=== PATIENT | female | born 1980 | race Caucasian/White ===

== ENCOUNTER 2017-05-29 10:04 | Emergency (ER) | payer SELFPAY ==
[~2017-05-29] VITALS: Ht 170.2 cm; Wt 96.0 kg
[~2017-05-29 10:04] MED LIST: BACT800T5 PO; CEPH500C3 PO
[2017-05-29 10:09] VITALS: BP 138/66; PULSE 97; RESP 18; TEMP 97.8; O2SAT 98
[2017-05-29] MEDS ORDERED: SODIUM CHLORIDE 0.9% FLUSH 10 ML FLUSH IVF PRN (10:15)
[2017-05-29] MEDS ORDERED: HYDROmorphone HCL PF 2 MG/ML VIAL IV PUSH ONE (10:15)
[2017-05-29 10:18] VITALS: RESP 17; O2SAT 98
[2017-05-29 10:56] VITALS: BP 122/85; PULSE 86; RESP 16; TEMP 97.8; O2SAT 98
--- NOTE | 2017-05-29 10:56 | PD ---
Physical Exam Narrative I, Dr. Tate, have reviewed the advance practice practitioner's documentation and am in agreement, met with the patient face to face, made the diagnosis, and the medical decision making was done by me. *My assessment and Findings: Patient is a 37-year-old female comes in complaining of knee pain after she fell off a half report this morning. She also has pain to her right ankle. Exam shows dislocation of the right patella and swelling of the right ankle. Pedal pulses are intact. Data Data Last Documented VS Vital Signs Date Time Temp Pulse Resp B/P (MAP) Pulse Ox O2 Delivery O2 Flow Rate FiO2 05/29/17 12:26 97.8 86 16 120/77 (91) 98 05/29/17 10:56 Room Air Orders Orders Iv Access Insert/Monitor (05/29/17 10:15) Oximetry (05/29/17 10:15) Sodium Chloride 0.9% Flush (Ns Flush) (05/29/17 10:15) Knee, Complete (4vws) (05/29/17 ) Tibia/Fibula (Ap/Lat) (05/29/17 ) Hydromorphone Pf Inj (Dilaudid Pf Inj) (05/29/17 10:15) Splint Or Brace Apply/Monitor (05/29/17 11:18) Crutches (05/29/17 11:18) Ed Discharge Order (05/29/17 12:27) Fiberglass Short Leg Splint Ad (05/29/17 ) Immobilizer Knee 20 Inch (05/29/17 ) MDM Supervised Visit with BILLY: Yes Narrative Course Patient received 8 mg of morphine by EMS. Patella was relocated. She is given additional pain medicine. X-ray shows a fracture of the ankle. She is placed in a knee immobilizer and ankle was splinted. Given crutches. Advised follow- up with orthopedics. Procedures Procedure Narrative Verbal consent was obtained. Right leg straightened and patella was pushed back into place. Patient tolerated the procedure well. Pedal pulses present after the reduction. Diagnosis Primary Impression: Dislocation of right patella Qualified Codes: S83.004A - Unspecified dislocation of right patella, initial encounter Scripts Hydrocodone/Acetaminophen (Hydrocodone-Acetamin 5-325 mg) 5 Mg-325 Mg Tablet 1 TAB PO Q6HR Y for PAIN SCALE 1 TO 10, #15 Prov: Gabby Tate MD 05/29/17 Disposition: 01 DISCHARGE HOME Gabby Tate MD May 29, 2017 10:56
--- NOTE | 2017-05-29 10:59 | PD ---
HPI Chief Complaint: Fall Time Seen by Provider: 10:10 Travel History International Travel<30 days: No Contact w/Intl Traveler<30days: No Traveled to known affect area: No History of Present Illness HPI 37-year-old female presents to the emergency room via ambulance for evaluation of extreme right knee pain. Patient was playing on her daughter's report when she fell forward landing on her right knee. She also reports pain in her ankle. Denies paresthesias. Denies any other injuries. She denies hitting her head or loss of consciousness. States pain is worsened with any range of motion of the knee. She received 8 mg of morphine on the ambulance without any relief in symptoms. PFS Past Medical History Medical History: Denies Significant Hx Diminished Hearing: No Tetanus Vaccination: > 5 Years Influenza Vaccination: No ?: Not LMP: 05/02/17 : 6 Para: 1 Miscarriage: 2 : 2 Ectopic : Yes (2) Past Surgical History Section: Yes (1) Gynecologic Surgery: Yes (left fallopian tube REMOVED) Social History Alcohol Use: Yes (OCASSIONALLY) Tobacco Use: Yes (1/2 PPD) Substance Use: Yes (METH,YEARS AGO) Allergies-Medications (Allergen,Severity, Reaction): Coded Allergies: No Known Allergies (Verified Adverse Reaction, Unknown, 05/29/17) Reported Meds & Prescriptions Reported Meds & Active Scripts Active Hydrocodone-Acetamin 5-325 mg (Hydrocodone/Acetaminophen) 5 Mg-325 Mg Tablet 1 Tab PO Q6HR PRN Review of Systems Except as stated in HPI: all other systems reviewed are Neg Physical Exam Narrative GENERAL: Well-nourished, obese female screaming in pain. Holding right knee flexed. SKIN: Focused skin assessment warm/dry. HEAD: Normocephalic. EYES: No scleral icterus. No injection or drainage. NECK: Supple, trachea midline. No JVD or lymphadenopathy. CARDIOVASCULAR: Regular rate and rhythm without murmurs, gallops, or rubs. RESPIRATORY: Breath sounds equal bilaterally. No accessory muscle use. MUSCULOSKELETAL: No cyanosis. Moderate edema of the right ankle. No obvious edema of the right knee. There is obvious lateral dislocation of the right patella. Patient has extreme pain with any range of motion of the knee. Full range motion of the ankle and foot. 2+ dorsalis pedis pulse. Data Data Last Documented VS Vital Signs Date Time Temp Pulse Resp B/P (MAP) Pulse Ox O2 Delivery O2 Flow Rate FiO2 05/29/17 10:56 97.8 86 16 122/85 (97) 98 Room Air Orders Orders Iv Access Insert/Monitor (05/29/17 10:15) Oximetry (05/29/17 10:15) Sodium Chloride 0.9% Flush (Ns Flush) (05/29/17 10:15) Knee, Complete (4vws) (05/29/17 ) Tibia/Fibula (Ap/Lat) (05/29/17 ) Hydromorphone Pf Inj (Dilaudid Pf Inj) (05/29/17 10:15) Splint Or Brace Apply/Monitor (05/29/17 11:18) Crutches (05/29/17 11:18) MDM Medical Decision Making Medical Screen Exam Complete: Yes Emergency Medical Condition: Yes Medical Record Reviewed: Yes Differential Diagnosis Dislocation, contusion, sprain, strain Narrative Course 37-year-old female presents to the emergency room via ambulance for evaluation of right knee pain after falling off of a hover board just prior to arrival. She also reports right ankle pain but denies any other injuries. She was given 8 mg morphine in the ambulance and 0.5 mg Dilaudid in the ED. Physical exam reveals obvious lateral dislocation of the right patella. Patient's leg is held in flexion. My attending physician, Dr. Tate, came in reduced the right patella without difficulty, see alternate provider note for details. Upon reduction, patient had complete range of motion of the right lower extremity. It remains neurovascularly intact. X-ray of the knee is negative. X -ray of the ankle shows nondisplaced fractured lateral malleolus. Patient was placed in a posterior short leg with knee immobilization and discharged with crutches and prescription for Lortab. Told to follow-up the primary care physician/orthopedist or return for worsening symptoms. She understands and agrees to plan. Diagnosis Primary Impression: Dislocation of right patella Qualified Codes: S83.004A - Unspecified dislocation of right patella, initial encounter Additional Impression: Closed right ankle fracture Qualified Codes: S82.891A - Other fracture of right lower leg, initial encounter for closed fracture Referrals: Orthopedist Primary Care Physician Additional Instructions: Rest, elevate, use crutches and knee immobilizer until follow-up. Lortab as directed, as needed for pain.Do not drink alcohol or drive while taking this medication. Take ibuprofen with food as directed, as needed for pain. Apply ice to the affected area for 20 minutes at a time, as needed for pain and swelling. Follow-up with a primary care physician or orthopedist. Return to the emergency room for worsening symptoms. Med/Other Pt SpecificInfo: Prescription(s) given Scripts Hydrocodone/Acetaminophen (Hydrocodone-Acetamin 5-325 mg) 5 Mg-325 Mg Tablet 1 TAB PO Q6HR Y for PAIN SCALE 1 TO 10, #15 Prov: Gabby Tate MD 05/29/17 Disposition: 01 DISCHARGE HOME Condition: Stable Sarahy Solorio May 29, 2017 10:59
--- NOTE | 2017-05-29 11:07 | RADRPT ---
EXAM DATE/TIME: 05/29/2017 10:35 [facility] COMPARISON: No previous studies available for comparison. INDICATIONS : Pain. MEDICAL HISTORY : None. SURGICAL HISTORY : None. ENCOUNTER: Initial ACUITY: 1 day PAIN SCORE: 10/10 LOCATION: Right Ankle. FINDINGS: Soft tissue swelling lateral malleolus nondisplaced fracture of such. Medial malleolus is intact. Proximal tibia and fibula are intact. CONCLUSION: Fracture lateral malleolus. Conrad Lao MD FACR on May 29, 2017 at 11:05 Board Certified Radiologist. This report was verified electronically.
--- NOTE | 2017-05-29 11:07 | RADRPT ---
EXAM DATE/TIME: 05/29/2017 10:39 [facility] COMPARISON: No previous studies available for comparison. INDICATIONS : Pain. MEDICAL HISTORY : None. SURGICAL HISTORY : None. ENCOUNTER: Initial ACUITY: 1 day PAIN SCORE: 8/10 LOCATION: Right Knee. FINDINGS: Four view examination of the right knee demonstrates no evidence of fracture or dislocation. Bony mi neralization is normal. The articular surfaces are intact. The suprapatellar soft tissues have a no rmal configuration. CONCLUSION: Anatomic alignment, negative for fracture. Conrad Lao MD FACR on May 29, 2017 at 11:05 Board Certified Radiologist. This report was verified electronically.
[2017-05-29] MEDS ORDERED: HYDR-3516 PO (11:23)
[2017-05-29 12:26] VITALS: BP 120/77; TEMP 97.8
== END 2017-05-29 12:30 | disposition home or self-care (01) ==
LOC: NEPD 10:04
DX: S83.004A Unspecified dislocation of right patella, initial encounter (principal); V00.181A Fall from other rolling-type pedestrian conveyance, initial encounter
CPT/HCPCS: 73564; 73590; 96374; 99284; E0113; J1170; L1830

== ENCOUNTER → 2017-06-21 | Outpatient (CLI) | payer SELFPAY ==
[~2017-06-21] MED LIST changes: -BACT800T5 PO; -CEPH500C3 PO; +HYDR-3516 PO
== END ==
LOC: HORT 10:54
PROVIDERS: ATTEND Orthopaedic Surgery
DX: S82.91XA Unspecified fracture of right lower leg, initial encounter for closed fracture (principal); X58.XXXA Exposure to other specified factors, initial encounter
CPT/HCPCS: L2114

== ENCOUNTER 2018-05-17 06:41 | Observation (INO) ==
[2018-05-17] MEDS ORDERED: Chlorhexidine Gluconate 2% 1 Pack (2 Cloths) TOPICAL ONE (07:21)
[2018-05-17] MEDS ORDERED: Metoprolol Tartrate 25 MG Tablet PO SCH (07:21)
[2018-05-17] MEDS ORDERED: ceFAZolin 2 GM Premix Inj 2 GM/50 ML PIGGYBACK IV.SIG SCH (08:00)
[2018-05-17] MEDS ORDERED: Heparin - SQ 10,000 UNITS/ML Vial SQ SCH (08:00)
[2018-05-17] MEDS ORDERED: Sodium Chlor 0.9% Inj 500 ML IV.SIG SCH (08:00)
[2018-05-17] MEDS ORDERED: Sugammadex Inj 200 MG/2 ML Vial IV.PUSH ONE (08:25)
[2018-05-17] MEDS ORDERED: Artificial Tears Opth Oint 3.5 GM Tube ONE (08:25)
[2018-05-17] MEDS ORDERED: Ketamine Inj 500 MG/10 ML Vial ONE (09:48)
[2018-05-17] MEDS ORDERED: Famotidine PF Inj 20 MG/2 ML Vial ONE (09:49)
[2018-05-17] MEDS ORDERED: Dexmedetomidine Inj 200 MCG/2 ML Vial ONE (09:49)
[2018-05-17] MEDS ORDERED: HYDROmorphone PF Inj 1 MG/ML Ampul ONE (09:49)
[2018-05-17] MEDS ORDERED: Lidocaine 1%/Epinephrine 1:100,000 Inj 20 ML Vial INFILTRATN ONE ×2 (09:55→11:33)
--- NOTE | 2018-05-17 11:29 | MP ---
cc: Daniel Frank MD DATE OF OPERATION: 05/17/2018 PREOPERATIVE DIAGNOSIS: Large pelvic cystic mass. 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 ANESTHESIA: General endotracheal. COMPLICATIONS: None. INDICATIONS FOR PROCEDURE: This patient is a pleasant 38-year-old patient who I had referred to Dr. Daniela Reyes for a very large cystic mass of the pelvis. This was thought to be likely ovarian in origin. Dr. Reyes asked that I be present during the patient's case to make sure this is not related to the mesentery or the bowel. Risks and benefits of the procedure and scheduling of the procedure was all done by Dr. Reyes. I was just asked to come to the operating room to give an opinion and assist. DETAILS: I arrived to the operating room and was there while they were putting the patient to sleep. Dr. Reyes and team were preparing for the case. The patient was prepped and draped in standard surgical fashion. Dr. Reyes placed a uterine manipulator in. Please see his operative note for the details. Dr. Reyes gained entry to the abdominal cavity in the left upper quadrant using a 5 mm port. I then placed an 8 mm robot port in the right upper quadrant under direct vision. Cyst was quite large and basically filled the entire abdominal cavity. Multiple photographs were taken. Dr. Reyes asked me to decompress the cyst so it could be manipulated. An aspiration needle was used to puncture the cyst. We got out about 2 liters of fluid. Once the cyst was mostly decompressed, we then held the cyst up and used scissors to make a small hole. The laparoscopic suction military source operations officer was used to drain out the remaining fluid. At this point, it was clear the cyst was coming from the left ovary. It was not adherent to any bowel or any other structures. Dr. Reyes stated that he could remove the cyst with the robot and did not need my assistance. Please see Dr. Reyes' operative note for the conclusion of the procedure. I was present and scrubbed at the beginning of the procedure and then scrubbed out when Dr. Reyes switched over to the robotic portions of the procedure. MD NANCY Barnett/chas , 11:06 AM , 11:12 AM BO
[2018-05-17] MEDS ORDERED: Ketorolac Inj 30 MG/ML (IVP) Vial IV.PUSH PRN (12:14)
[2018-05-17] MEDS ORDERED: LORazepam 0.5 MG Tablet PO PRN (12:14)
[2018-05-17] MEDS ORDERED: fentaNYL Citrate Inj 100 MCG/2 ML Ampul ONE (12:36)
[2018-05-17] MEDS ORDERED: *morphine SULFATE 10 MG/ML PERIprocedure ONLY ONE (13:05)
[2018-05-17] MEDS: KCL 20 mEq/D5W/NaCl 0.45% Inj 1,000 ML IV.CONT SCH ×2 (13:28→21:59)
--- NOTE | 2018-05-17 13:29 | MP ---
cc: Daniela Reyes MD DATE OF OPERATION: 05/17/2018 PREOPERATIVE DIAGNOSIS: Large abdominopelvic cystic mass. POSTOPERATIVE DIAGNOSIS: Left ovarian cystadenoma. PROCEDURE PERFORMED: 1. Laparoscopy with aspiration of the cystic component of the mass. 2. Robotic-assisted laparoscopic left salpingo-oophorectomy (with resection of 26 cm mass). ANESTHESIA: General endotracheal anesthesia. ESTIMATED BLOOD LOSS: 50 mL IV FLUIDS: 2000 mL URINE OUTPUT: 100 mL INTRAOPERATIVE CONSULT: Dr. Daniel Frank, general surgery. HISTORY AND INDICATIONS: A 38-year-old female found on exam and imaging to have a large smooth-walled cystic mass that seemed to be arising from the pelvis and extending into the abdomen. It measured at least 26 cm in 2-dimensional diameter, without overt evidence of disease elsewhere. She has been counseled regarding surgical management. She wishes for conservative management such that if the mass is benign she wishes to preserve any remaining contralateral ovary as well as to leave her uterus in situ. She is seen in the preoperative holding area where the findings and plan of care are again discussed and reviewed. She reiterates that she would like conservative surgery to remove the mass. She understands that this will likely result in loss of that tube and ovary, but she also agrees that if there is a malignancy present, and we feel hysterectomy and removal of the contralateral tube and ovary as well as staging biopsies are warranted, she consents to that as well. FINDINGS: Upon entry into the peritoneal cavity, a large smooth-walled cystic mass was seen arising from and replacing the left ovary. The uterus grossly appears normal. The right tube and ovary grossly appear normal. The right ovary has a couple of small functional cysts. There is no overt retroperitoneal adenopathy. There is no intraperitoneal nodularity. There are essentially no adhesions and the mass itself is estimated to be approximately 26-28 cm. Initial aspiration removes just over 4 liters of clear to straw-colored fluid, which collapses the mass. DESCRIPTION OF PROCEDURE: She was taken to the operating room and placed in dorsal lithotomy position, after general endotracheal anesthesia was administered, a timeout was undertaken. She was identified by site recognition, the hospital ID bracelet, and the proposed procedure was reviewed and confirmed. She was carefully positioned in padded Maulik stirrups. Her arms were padded and secured to the sides. She was further secured to the operating table with egg crate padding and tape in a cross-chest over the shoulder fashion. All sites noted to be properly aligned with no malalignments or pressure points. She was prepped and draped in usual sterile fashion and placed in lithotomy position. The cervix was grasped. Uterine cavity sounded to 7 cm and a large VCare manipulator was inserted and secured in the usual fashion. Manning catheter was placed in the bladder. She was returned to low lithotomy position. Change of sterile gloves was undertaken. We completed draping in anticipation of laparoscopy. After confirming that her orogastric tube was in the stomach on suction and with manual elevation of the abdominal wall and direct laparoscopic visualization, a 5 mm cannula was placed in the left upper quadrant and carbon dioxide gas was insufflated. Now under laparoscopic visualization, an 8 mm cannula was placed in the right upper quadrant and this was used to access with a needle aspirator, which was placed in the capsule to initiate drainage. After approximately 2 liters of fluid were removed and the tense wall of the cyst had been relaxed, laparoscopic incisions were used to make a small opening in the capsule into which a larger bore suction was placed, which more rapidly removed the remaining 2 to 2.5 liters of fluid, collapsing down the wall of the mass to prevent leaking. EndoCatch was placed to prevent leaking from this puncture site. The puncture site was grasped and elevated and an Endoloop was placed around the wall of the mass to secure it and was of laparoscopically secured, cut, and the excess suture was removed. She was placed in Trendelenburg position. Anatomy was surveyed with findings as described above. The small bowel was folded back on its mesenteric root. Three Ray-Graciela sponges were placed in the root of the small bowel mesentery and the robotic system was brought into the field and attached in usual fashion. Monopolar scissors, fenestrated bipolar forceps and ProGrasp manipulators were placed in arms #1, 2, and 3 respectively and I took my place at the surgeon's console. Retroperitoneal dissection was carried out lateral and parallel and overlying the left psoas muscle, extending from the round ligament, and carried proximally well above the pelvic brim. Dissection was continued medially. The left ureter was identified. The left infundibulopelvic ligament was isolated. The intervening peritoneum was opened. The infundibulopelvic ligament was isolated to the level of the pelvic brim where it was cauterized thoroughly and transected. Peritoneal attachments were then dissected proximally towards the uterus and dissection was continued until the left uteroovarian ligament was isolated, which were thoroughly cauterized and transected, thereby removing the large left ovarian cystic mass. The pelvis was irrigated. All sites were hemostatic. The mass appeared benign. It was felt pending pathology that all reasonable surgical objectives had been completed in keeping with her wishes to maintain a conservative approach. The robotic instruments were removed. The robotic system was disengaged from the operative field. I re-entered the bedside under sterile condition. Each of the 3 Ray-Graciela sponges that had been placed in the peritoneal cavity were removed individually through the 12 mm cannula. Each were inspected and noted to be removed in their entirety. Next, the 12 mm fascial incision was extended slightly with sharp dissection and a 15 mm cannula was introduced and a 15 cm EndoCatch bag was used to capture the mass, which, as the bag was closed it was brought through the abdominal wall. Countertraction and some sharp dissection on the wall of the mass were used to help deliver it through the abdominal wall, contained within the EndoCatch bag, until the entire mass was removed and sent for frozen section histopathologic analysis. Visual inspection confirmed there were no remaining foreign objects in the peritoneal cavity. All sites were hemostatic and the midline fascial defect was closed with interrupted 0 Vicryl sutures using a needle fascial closure device. Sutures were tied securely which rendered the fascia completely airtight and hemostatic. The remaining cannulas were withdrawn. Carbon dioxide gas was removed from the peritoneal cavity. Vicryl 3-0 subcutaneous, 2-0 Vicryl subcuticular, and Steri-Strips were used to close these incisions. She was returned to dorsal lithotomy position. Pelvic exam allowed removal of the VCare manipulator. There were no remaining foreign objects in the vagina. A small amount of bleeding from the manipulation of the cervix and the uterus and the tenaculum site was rendered hemostatic with topical silver nitrate. There were no remaining foreign objects in the vagina. Final counts were correct. She was returned to dorsal supine. Pathology came back showing a benign cystadenoma. She was returned to dorsal supine position and was pending reversal of anesthesia when I left the operating room to precede her to the postanesthesia care unit. MD Ashely Jackson , 12:56 PM , 01:14 PM
[2018-05-18 07:39] LABS: Baso % (Auto) 0.2 % (0.0-2.0); Hematocrit 41.3 % (35.0-46.0); Hemoglobin 13.6 gm/dL (11.6-15.3); Lymph # (Auto) 1.4 th/mm3 (1.0-4.8); Lymph % (Auto) 9.8 % (9.0-44.0); Mean Corpuscular HGB Conc 32.9 % (32.0-36.0); Mean Corpuscular Hemoglobin 32.3 pg (27.0-34.0); Mean Corpuscular Volume 98.2 fL (80.0-100.0); Mean Platelet Volume 9.2 fL (7.0-11.0); Mono # (Auto) 1.1 th/mm3 (0.0-0.9); Mono % (Auto) 7.7 % (0.0-8.0); Neut # (Auto) 12.1 th/mm3 (1.8-7.7); Neut % (Auto) 82.3 % (16.0-70.0); Platelet Count 212 th/mm3 (150-450); Red Cell Distribution Width 13.2 % (11.6-17.2); White Blood Count 14.8 th/mm3 (4.0-11.0)
[2018-05-18 08:01] LABS: Calcium 8.2 mg/dL (8.5-10.1); Carbon Dioxide 24.4 meq/L (21.0-32.0); Potassium 4.4 meq/L (3.5-5.1)
[2018-05-18 08:02] VITALS: BP 106/62; PULSE 95; RESP 16; TEMP 99.3; O2SAT 95
--- NOTE | 2018-05-18 08:03 | MD ---
cc: Daniela Reyes MD,Daniel Tracy MD DATE OF DISCHARGE: 05/18/2018 PROCEDURE: On 05/17/2018, robotic-assisted laparoscopic resection of large cystic left ovarian mass (left salpingo-oophorectomy). HOSPITAL COURSE: Did well in her early postoperative period. She was hemodynamically stable, tolerated oral intake. Manning catheter out pending voiding, ins and outs are 3240/3000. LABORATORY: Pending this morning. PHYSICAL EXAMINATION: VITAL SIGNS: She is afebrile. Pulse 88-96, respirations 14-16, blood pressure 93-112/52-60, O2 saturations ranging from 92-98% depending on whether she is asleep or awake. LUNGS: Clear except for some mild basilar rales. CARDIOVASCULAR: Regular rate and rhythm. ABDOMEN: Soft. Incisions are clean and dry. GYNECOLOGIC: No bleeding. EXTREMITIES: Nontender. ASSESSMENT: Postoperative day #1, doing well in her early postoperative period. The findings at the time of surgery, the steps taken and the preliminary pathology reviewed. Activities and restrictions were discussed. Questions were asked and answered. She expressed good understanding. PLAN: I anticipate she will meet criteria for discharge to home today. She is to resume her prior medicines, which was just a single prescription for Nexium. She will have a prescription for Percocet for pain and she can supplement with [id number] medication, as per our discussion. Office numbers made available and she is asked to call our office to schedule a followup sometime in the next 2-3 weeks or to contact us at any time should there be questions or problems. Daniela Reyes MD KLM/giovanny , 07:00 AM , 07:07 AM
== END 2018-05-18 10:03 | disposition home or self-care (01) ==
LOC: HSDC 06:41 → HSDI 06:41 → HCIN 18:57
PROVIDERS: ADMIT Obstetrics & Gynecology Gynecologic Oncology; ATTEND Obstetrics & Gynecology Gynecologic Oncology